=== PATIENT | female | born 1975 | race Two or more races ===

== ENCOUNTER 2017-01-07 13:02 | Emergency (ER) | payer MEDICAID ==
[~2017-01-07] VITALS: Ht 172.7 cm; Wt 85.3 kg
[2017-01-07 13:22] VITALS: BP 138/90
== END 2017-01-07 13:34 | disposition home or self-care (01) ==
LOC: ER 13:02
DX: J20.9 Acute bronchitis, unspecified (principal); J45.909 Unspecified asthma, uncomplicated